=== PATIENT | male | born 1980 | race Caucasian/White ===

== ENCOUNTER 2021-02-18 22:50 | Inpatient (IN) ==
[2021-02-19] MEDS ORDERED: DEXAMETHASONE 4 MG/1 ML VIAL IV STA (00:06)
[2021-02-19] MEDS ORDERED: SODIUM CHLORIDE 0.9% 1,000 ML IV STA (00:06)
[2021-02-19] MEDS ORDERED: cefTRIAXone 1,000 MG in SODIUM CHLORIDE 0.9% 100 ML IV STA (00:06)
[2021-02-19 00:41] LABS: Basophils % 0.1 % (0.0-0.8); Hematocrit 38.7 VOL% (42.0-52.0); Hemoglobin 13.6 GM/DL (14.0-18.0); Immature Granulocytes % 1.3 %; Immature Granulocytes Absolute 0.12 #; Lymphocytes # 0.7 10*3/uL (1.4-4.0); Lymphocytes % 7.2 % (21.2-54.2); Mean Corpuscular HGB Conc 35.1 GM/DL (32-36); Mean Corpuscular Volume 85.6 FL (87-102); Mean Platelet Volume 10.9 FL (9.6-12.0); Monocytes % 6.1 % (1.7-12.7); Neutrophils % 85.3 % (38.7-73.9); Platelet Count 238 T/CUMM (130-400); Red Blood Count 4.52 MC/CUMM (3.8-5.5); Red Cell Distribution Width 13.7 % (9.3-17.3); White Blood Count 9.3 T/CUMM (4-12)
[2021-02-19 00:52] LABS: Ferritin 1305.9 ng/ml (26-388)
[2021-02-19 00:53] LABS: Alanine Aminotransferase 38 U/L (16-61); Alkaline Phosphatase 57 U/L (45-117); Aspartate Amino Transferase 41 U/L (0-37); Blood Urea Nitrogen 15 MG/DL (7-18); Calcium 8.2 MG/DL (8.5-10.1); Carbon Dioxide 25 MMOL/L (21-32); Estimated Glom Filtration Rate 111 ML/MIN; Glucose 103 MG/DL (74-106); Osmolality,Calculated 268.2 MOS/KG (273-304); Potassium 3.4 MMOL/L (3.5-5.1); Sodium 134 MMOL/L (136-145); Total Protein 7.2 G/DL (6.4-8.2); Troponin I < 0.015 NG/ML (0.00-0.045)
[2021-02-19] MEDS ORDERED: ONDANSETRON 4 MG/2 ML VIAL IV PRN (01:08)
[2021-02-19] MEDS ORDERED: DEXTROSE 50% 25 GM/50 ML VIAL IV PRN (01:08)
[2021-02-19] MEDS ORDERED: GLUCAGON 1 MG VIAL IM PRN (01:08)
[2021-02-19] MEDS ORDERED: ACETAMINOPHEN 325 MG TABLET PO PRN (01:08)
[2021-02-19] MEDS ORDERED: MELATONIN 3 MG TABLET PO PRN (01:14)
[2021-02-19] MEDS ORDERED: POTASSIUM CHLORIDE 20 MEQ TABLET PO PRN (01:20)
[2021-02-19] MEDS ORDERED: OSELTAMIVIR 75 MG CAPSULE PO ONE (01:44)
[2021-02-19] MEDS: ALBUTEROL INHALER 18 GM INH SCH ×4 (02:20→20:53)
[2021-02-19] MEDS: ASCORBIC ACID 500 MG TABLET PO SCH ×2 (09:30→21:02)
[2021-02-19] MEDS: AZITHROMYCIN 250 MG TABLET PO SCH (09:30)
[2021-02-19] MEDS: CETIRIZINE 10 MG TABLET PO SCH (09:30)
[2021-02-19] MEDS: DEXAMETHASONE 4 MG/1 ML VIAL IV SCH (09:30)
[2021-02-19] MEDS: ZINC GLUCONATE 50 MG TABLET PO SCH (09:30)
[2021-02-19] MEDS: FAMOTIDINE 20 MG TABLET PO SCH ×2 (09:30→21:02)
[2021-02-19] MEDS: CHOLECALCIFEROL 1,000 UNIT TABLET PO SCH (09:30)
[2021-02-19] MEDS ORDERED: REMDESIVIR 200 MG in SODIUM CHLORIDE 0.9% 210 ML IV ONE (14:30)
[2021-02-19] MEDS: ENOXAPARIN 40 MG/0.4 ML SYRINGE SUBCUT SCH (14:45)
[2021-02-19] MEDS: OSELTAMIVIR 75 MG CAPSULE PO SCH (21:02)
[2021-02-20] MEDS: cefTRIAXone 1,000 MG in SODIUM CHLORIDE 0.9% 100 ML IV SCH (00:52)
[2021-02-20] MEDS: ALBUTEROL INHALER 18 GM INH SCH ×4 (01:24→20:29)
[2021-02-20 08:12] VITALS: BP 114/68
[2021-02-20] MEDS: DEXAMETHASONE 4 MG/1 ML VIAL IV SCH (08:17)
[2021-02-20] MEDS: OSELTAMIVIR 75 MG CAPSULE PO SCH ×2 (08:20→08:21)
[2021-02-20] MEDS: AZITHROMYCIN 250 MG TABLET PO SCH (08:21)
[2021-02-20] MEDS: FAMOTIDINE 20 MG TABLET PO SCH ×2 (08:21→20:29)
[2021-02-20] MEDS: ZINC GLUCONATE 50 MG TABLET PO SCH (08:21)
[2021-02-20] MEDS: CHOLECALCIFEROL 1,000 UNIT TABLET PO SCH (08:21)
[2021-02-20] MEDS: ASCORBIC ACID 500 MG TABLET PO SCH ×2 (08:21→20:29)
[2021-02-20] MEDS: CETIRIZINE 10 MG TABLET PO SCH (08:21)
[2021-02-20 09:24] LABS: Basophils % 0.1 % (0.0-0.8); Hematocrit 37.7 VOL% (42.0-52.0); Hemoglobin 13.3 GM/DL (14.0-18.0); Immature Granulocytes % 1.1 %; Immature Granulocytes Absolute 0.09 #; Lymphocytes # 0.8 10*3/uL (1.4-4.0); Lymphocytes % 10.5 % (21.2-54.2); Mean Corpuscular HGB Conc 35.3 GM/DL (32-36); Mean Corpuscular Volume 86.1 FL (87-102); Mean Platelet Volume 10.7 FL (9.6-12.0); Monocytes % 9.3 % (1.7-12.7); Platelet Count 312 T/CUMM (130-400); Red Blood Count 4.38 MC/CUMM (3.8-5.5); White Blood Count 7.9 T/CUMM (4-12)
[2021-02-20 09:36] LABS: Calcium 8.9 MG/DL (8.5-10.1); Osmolality,Calculated 276.7 MOS/KG (273-304); Potassium 3.6 MMOL/L (3.5-5.1)
[2021-02-20 09:45] LABS: Band Neutrophils 1 % (0-10); Hypochromasia Slight; Lymphocytes 9 % (20-55); Microcytosis 1+; Segmented Neutrophils 82 % (50-85); Total Cells Counted 100
[2021-02-20 09:46] LABS: Platelet Estimate Normal
[2021-02-20] MEDS: REMDESIVIR 100 MG in SODIUM CHLORIDE 0.9% 100 ML IV SCH (10:02)
[2021-02-20] MEDS: ENOXAPARIN 40 MG/0.4 ML SYRINGE SUBCUT SCH (11:37)
[2021-02-21] MEDS: cefTRIAXone 1,000 MG in SODIUM CHLORIDE 0.9% 100 ML IV SCH (00:15)
[2021-02-21] MEDS: ALBUTEROL INHALER 18 GM INH SCH ×4 (03:22→18:04)
[2021-02-21 06:02] LABS: Basophils % 0.1 % (0.0-0.8); Hematocrit 40.8 VOL% (42.0-52.0); Hemoglobin 13.5 GM/DL (14.0-18.0); Immature Granulocytes % 1.1 %; Immature Granulocytes Absolute 0.11 #; Lymphocytes # 1.4 10*3/uL (1.4-4.0); Lymphocytes % 14.4 % (21.2-54.2); Mean Corpuscular HGB Conc 33.1 GM/DL (32-36); Mean Corpuscular Volume 89.1 FL (87-102); Mean Platelet Volume 10.7 FL (9.6-12.0); Monocytes % 8.2 % (1.7-12.7); Neutrophils % 76.2 % (38.7-73.9); Platelet Count 341 T/CUMM (130-400); Red Blood Count 4.58 MC/CUMM (3.8-5.5); Red Cell Distribution Width 14.2 % (9.3-17.3); White Blood Count 9.8 T/CUMM (4-12)
[2021-02-21 06:21] LABS: Calcium 8.5 MG/DL (8.5-10.1); Osmolality,Calculated 277.7 MOS/KG (273-304); Potassium 3.5 MMOL/L (3.5-5.1)
[2021-02-21] MEDS: DEXAMETHASONE 4 MG/1 ML VIAL IV SCH (08:00)
[2021-02-21] MEDS: CHOLECALCIFEROL 1,000 UNIT TABLET PO SCH (08:04)
[2021-02-21] MEDS: FAMOTIDINE 20 MG TABLET PO SCH ×2 (08:04→20:42)
[2021-02-21] MEDS: ASCORBIC ACID 500 MG TABLET PO SCH ×2 (08:04→20:42)
[2021-02-21] MEDS: CETIRIZINE 10 MG TABLET PO SCH (08:05)
[2021-02-21] MEDS: AZITHROMYCIN 250 MG TABLET PO SCH (08:05)
[2021-02-21] MEDS: ZINC GLUCONATE 50 MG TABLET PO SCH (08:05)
[2021-02-21 09:32] LABS: Anisocytosis Slight; Band Neutrophils 5 % (0-10); Lymphocytes 14 % (20-55); Macrocytosis Slight; Platelet Estimate Normal; Segmented Neutrophils 69 % (50-85); Total Cells Counted 100
[2021-02-21] MEDS: REMDESIVIR 100 MG in SODIUM CHLORIDE 0.9% 100 ML IV SCH (09:41)
[2021-02-21] MEDS: OSELTAMIVIR 75 MG CAPSULE PO SCH ×2 (09:41→21:08)
[2021-02-21] MEDS: ENOXAPARIN 40 MG/0.4 ML SYRINGE SUBCUT SCH (11:41)
[2021-02-22] MEDS: ALBUTEROL INHALER 18 GM INH SCH ×4 (00:32→19:50)
[2021-02-22 04:50] LABS: Basophils % 0.1 % (0.0-0.8); Eosinophils % 0.2 % (0.00-10.9); Hematocrit 40.4 VOL% (42.0-52.0); Hemoglobin 13.6 GM/DL (14.0-18.0); Immature Granulocytes Absolute 0.17 #; Lymphocytes # 1.5 10*3/uL (1.4-4.0); Lymphocytes % 17.4 % (21.2-54.2); Mean Corpuscular HGB Conc 33.7 GM/DL (32-36); Mean Platelet Volume 10.8 FL (9.6-12.0); Monocytes % 9.1 % (1.7-12.7); Neutrophils % 71.2 % (38.7-73.9); Platelet Count 361 T/CUMM (130-400); Red Blood Count 4.54 MC/CUMM (3.8-5.5); Red Cell Distribution Width 13.8 % (9.3-17.3); White Blood Count 8.5 T/CUMM (4-12)
[2021-02-22 05:32] LABS: Calcium 8.5 MG/DL (8.5-10.1); Osmolality,Calculated 276.7 MOS/KG (273-304); Potassium 3.6 MMOL/L (3.5-5.1)
[2021-02-22 07:53] LABS: Platelet Estimate Increased; Polychromasia Slight
[2021-02-22 07:54] LABS: Microcytosis 2+
[2021-02-22] MEDS: ZINC GLUCONATE 50 MG TABLET PO SCH (09:20)
[2021-02-22] MEDS: DEXAMETHASONE 4 MG/1 ML VIAL IV SCH (09:20)
[2021-02-22] MEDS: OSELTAMIVIR 75 MG CAPSULE PO SCH ×2 (09:21→20:31)
[2021-02-22] MEDS: ASCORBIC ACID 500 MG TABLET PO SCH ×2 (09:21→20:31)
[2021-02-22] MEDS: FAMOTIDINE 20 MG TABLET PO SCH ×2 (09:21→20:32)
[2021-02-22] MEDS: REMDESIVIR 100 MG in SODIUM CHLORIDE 0.9% 100 ML IV SCH (09:21)
[2021-02-22] MEDS: CHOLECALCIFEROL 1,000 UNIT TABLET PO SCH (09:21)
[2021-02-22] MEDS: CETIRIZINE 10 MG TABLET PO SCH (09:21)
[2021-02-22] MEDS: ENOXAPARIN 40 MG/0.4 ML SYRINGE SUBCUT SCH (11:20)
[2021-02-23] MEDS: ALBUTEROL INHALER 18 GM INH SCH ×2 (00:50→06:15)
[2021-02-23 05:21] LABS: Basophils % 0.4 % (0.0-0.8); Eosinophils # 0.1 10*3/uL (0.0-0.87); Eosinophils % 0.6 % (0.00-10.9); Hematocrit 41.7 VOL% (42.0-52.0); Hemoglobin 14.5 GM/DL (14.0-18.0); Immature Granulocytes % 4.1 %; Immature Granulocytes Absolute 0.35 #; Lymphocytes # 1.8 10*3/uL (1.4-4.0); Lymphocytes % 20.7 % (21.2-54.2); Mean Corpuscular HGB Conc 34.8 GM/DL (32-36); Mean Corpuscular Volume 87.4 FL (87-102); Mean Platelet Volume 10.5 FL (9.6-12.0); Monocytes % 7.8 % (1.7-12.7); Neutrophils % 66.4 % (38.7-73.9); Platelet Count 371 T/CUMM (130-400); Red Blood Count 4.77 MC/CUMM (3.8-5.5); Red Cell Distribution Width 13.8 % (9.3-17.3); White Blood Count 8.5 T/CUMM (4-12)
[2021-02-23 05:50] LABS: Calcium 8.6 MG/DL (8.5-10.1); Potassium 3.8 MMOL/L (3.5-5.1)
[2021-02-23] MEDS: ZINC GLUCONATE 50 MG TABLET PO SCH (08:22)
[2021-02-23] MEDS: CETIRIZINE 10 MG TABLET PO SCH (08:22)
[2021-02-23] MEDS: DEXAMETHASONE 4 MG/1 ML VIAL IV SCH (08:22)
[2021-02-23] MEDS: CHOLECALCIFEROL 1,000 UNIT TABLET PO SCH (08:22)
[2021-02-23] MEDS: ASCORBIC ACID 500 MG TABLET PO SCH (08:22)
[2021-02-23] MEDS: FAMOTIDINE 20 MG TABLET PO SCH (08:22)
[2021-02-23] MEDS: OSELTAMIVIR 75 MG CAPSULE PO SCH (08:23)
[2021-02-23] MEDS: REMDESIVIR 100 MG in SODIUM CHLORIDE 0.9% 100 ML IV SCH (09:32)
[2021-02-23] MEDS: ENOXAPARIN 40 MG/0.4 ML SYRINGE SUBCUT SCH (11:24)
== END 2021-02-23 12:05 | disposition home or self-care (01) | DRG 177 ==
LOC: N.ED 22:50 → N.EDINP 02-19 01:14 → SUATTDRO 02-19 01:14 → N.CC 02-20 07:38
PROVIDERS: ADMIT Emergency Medicine; ATTEND Internal Medicine